=== PATIENT | female | born 1995 | race African-American/Black ===

== ENCOUNTER 2017-01-21 13:13 | Emergency (ER) | payer MEDICAID ==
[~2017-01-21] VITALS: Ht 152.4 cm; Wt 56.5 kg
[~2017-01-21 13:13] MED LIST: VALA500T32
[2017-01-21 13:23] VITALS: Ht 152.4 cm; Wt 56.5 kg
[2017-01-21] MEDS ORDERED: DICYCLOMINE 10 MG CAP PO ONE (14:30)
[2017-01-21 14:39] LABS: ADD SCAN DIFF NO
[2017-01-21 14:43] LABS: BASOPHILS % 0.6 % (0.0-2.0); EOSINOPHILS # 0.1 10^3/ul (0.0-0.5); EOSINOPHILS % 1.5 % (0.0-7.0); HEMATOCRIT 36.5 % (37.0-47.0); HEMOGLOBIN 11.7 g/dl (12.0-16.0); LYMPHOCYTES % 42.3 % (15.0-51.0); MEAN CORPUSCULAR HEMOGLOBIN 28.2 pg (29.0-33.0); MEAN CORPUSCULAR HGB CONC 32.1 g/dl (32.0-37.0); MEAN PLATELET VOLUME 10.3 fl (7.4-10.4); MONOCYTE # 0.4 10^3/ul (0.3-0.9); MONOCYTES % 7.9 % (0.0-11.0); NEUTROPHIL # 2.2 10^3/ul (1.6-7.5); NEUTROPHILS % 47.7 % (39.0-77.0); PLATELET COUNT 238 10^3/UL (140-415); RED BLOOD COUNT 4.15 10^6/ul (4.20-5.40); RED CELL DISTRIBUTION WIDTH 13.7 % (11.5-14.5); WHITE BLOOD COUNT 4.7 10^3/ul (4.8-10.8)
[2017-01-21 14:48] LABS: ADD UMIC YES; URINE BILIRUBIN (Dip) NEGATIVE (NEGATIVE); URINE BLOOD (Dip) TRACE (NEGATIVE); URINE COLOR LT. YELLOW (YELLOW); URINE GLUCOSE (Dip) NEGATIVE (NEGATIVE); URINE KETONES (Dip) NEGATIVE (NEGATIVE); URINE LEUKOCYTE ESTERASE (Dip) NEGATIVE (NEGATIVE); URINE NITRITE (Dip) NEGATIVE (NEGATIVE); URINE TOTAL PROTEIN (Dip) NEGATIVE (NEGATIVE); URINE UROBILINOGEN (Dip) 0.2 E.U./dL (0.1-1.0)
[2017-01-21 15:04] LABS: POTASSIUM 3.5 mmol/L (3.5-5.1)
[2017-01-21 15:06] LABS: CREATININE 0.68 mg/dl (0.44-1.00)
[2017-01-21 15:07] LABS: ALBUMIN/GLOBULIN RATIO 1.28; BILIRUBIN,INDIRECT 1.3 mg/dl (0-1.1); BILIRUBIN,TOTAL 1.3 mg/dl (0.2-1.3); CALCIUM 9.5 mg/dl (8.4-10.2); TOTAL PROTEIN 8.9 g/dl (6.1-8.1)
[2017-01-21 15:19] LABS: BACTERIA,URINE FEW; MUCUS,URINE FEW; SQUAMOUS EPITHELIAL CELL,UR MODERATE; URINE RBCS 0-2 /HPF (0)
--- NOTE | 2017-01-21 15:59 | ERD ---
ER Documentation Chief Complaint Date/Time DATE: 01/21/17 TIME: 15:56 Chief Complaint abd cramping, nausea and back pain since am s/p taking acyclovir again 2day (DK VALDERRAMA) HPI This is a 21-year-old female presents to the ER with generalized abdominal cramping that started 2 weeks ago. Abdominal cramping is located in the middle of the stomach and radiates to her back. Patient admits to nausea she denies vomiting she does have diarrhea. Diarrhea is watery and does not have any blood in it. Patient does not have any fevers or chills. She has had one episode of this in the past, and a few months and then went away. Patient states she started taking acyclovir 2 days ago and that today her nausea and abdominal pain was worse. Denies any rashes. She denies any shortness of breath or difficulty breathing. She denies any chest pain. (DK VALDERRAMA) ROS 12 point review of systems was done, all negative except per HPI. (DK VALDERRAMA) Medications Home Meds Active Scripts Ondansetron Hcl* (Zofran*) 4 Mg Tablet, 4 MG PO Q6H for NAUSEA AND/OR VOMITING, #30 TAB Prov:DK VALDERRAMA 01/21/17 Dicyclomine Hcl* (Bentyl*) 10 Mg Capsule, 10 MG PO QID for 5 Days, CAP Prov:DK VALDERRAMA 01/21/17 Reported Medications Valacyclovir Hcl* (Valtrex*) 500 Mg Tablet 07/13/12 Allergies Allergies: Coded Allergies: No Known Allergy (Unverified , 07/13/12) PMhx/Soc Hx Alcohol Use: No Hx Substance Use: No Hx Tobacco Use: No Smoking Status: Never smoker (DK VALDERRAMA) Physical Exam Vitals Vital Signs Date Time Temp Pulse Resp B/P Pulse Ox O2 Delivery O2 Flow Rate FiO2 01/21/17 13:23 98.3 87 18 119/74 100 (GAMA KING PA-C) Physical Exam GENERAL: The patient is well developed and appropriate for usual state of health , in no apparent distress. HEENT: Atraumatic CHEST: Clear to auscultation bilaterally. There are no rales, wheezes or rhonchi. HEART: Regular rate and rhythm. No murmurs, clicks, rubs or gallops. ABDOMEN: Soft, nontender and nondistended. Good bowel sounds. No rebound or guarding. No gross peritonitis. No gross organomegaly or masses. No Gonzalez sign or McBurney point tenderness. BACK: No midline or flank tenderness. EXTREMITIES: Equal pulses bilaterally. There is no peripheral clubbing, cyanosis or edema. No focal swelling or erythema. Full range of motion. Grossly neurovascularly intact NEURO: Alert and oriented. Cranial nerves II through XII are intact. Motor strength in all 4 extremities with 5/5 strength. Sensation grossly intact. Normal speech and gait. SKIN: There is no apparent rash or petechia. The skin is warm and dry. (DK VALDERRAMA) Result Diagram: 01/21/17 1425 01/21/17 1425 Results 24 hrs Laboratory Tests Test 01/21/17 14:25 White Blood Count 4.710^3/ul Red Blood Count 4.1510^6/ul Hemoglobin 11.7g/dl Hematocrit 36.5% Mean Corpuscular Volume 88.0fl Mean Corpuscular Hemoglobin 28.2pg Mean Corpuscular Hemoglobin Concent 32.1g/dl Red Cell Distribution Width 13.7% Platelet Count 74154^3/UL Mean Platelet Volume 10.3fl Neutrophils % 47.7% Lymphocytes % 42.3% Monocytes % 7.9% Eosinophils % 1.5% Basophils % 0.6% Nucleated Red Blood Cells % 0.0/100WBC Neutrophils # 2.210^3/ul Lymphocytes # 2.010^3/ul Monocytes # 0.410^3/ul Eosinophils # 0.110^3/ul Basophils # 0.010^3/ul Nucleated Red Blood Cells # 0.010^3/ul Urine Color LT. YELLOW Urine Clarity CLEAR Urine pH 6.0 Urine Specific [place] 1.025 Urine Ketones NEGATIVE Urine Nitrite NEGATIVE Urine Bilirubin NEGATIVE Urine Urobilinogen 0.2 E.U./dL Urine Leukocyte Esterase NEGATIVE Urine Microscopic RBC 0-2/HPF Urine Microscopic WBC NONE SEEN/HPF Urine Squamous Epithelial Cells MODERATE Urine Bacteria FEW Urine Mucus FEW Urine Hemoglobin TRACE Urine Glucose NEGATIVE% Urine Total Protein NEGATIVE Urine Test NEGATIVE Sodium Level 140mmol/L Potassium Level 3.5mmol/L Chloride Level 102mmol/L Carbon Dioxide Level 26mmol/L Anion Gap 16 Blood Urea Nitrogen 10mg/dl Creatinine 0.68mg/dl Glucose Level 87mg/dl Calcium Level 9.5mg/dl Total Bilirubin 1.3mg/dl Direct Bilirubin 0.00mg/dl Indirect Bilirubin 1.3mg/dl Aspartate Amino Transf (AST/SGOT) 19IU/L Alanine Aminotransferase (ALT/SGPT) 22IU/L Alkaline Phosphatase 53IU/L Total Protein 8.9g/dl Albumin 5.0g/dl Globulin 3.90g/dl Albumin/Globulin Ratio 1.28 Lipase 100U/L Current Medications Medications (Trade) Dose Ordered Sig/Erica Route PRN Reason Start Time Stop Time Status Last Admin Dose Admin Dicyclomine HCl (Bentyl) 20 mg ONCE ONCE PO 01/21/17 14:30 01/21/17 14:31 DC 01/21/17 14:37 (GAMA KING PA-C) Procedures/MDM Differential diagnosis includes but is not limited; appendicitis, diverticulitis , intra-abdominal abscess, obstruction, constipation, IBS, Crohn's disease, colitis. At this time I am awaiting CT results. If CT results are normally advised patient to follow-up with her primary care doctor and see gastroenterology systems possible for further testing such as endoscopy or colonoscopy. She will be sent home with Zofran with Bentyl. She can take Imodium [id number] as needed for diarrhea. (DK VALDERRAMA) PROCEDURE: CT abdomen and pelvis without contrast. CLINICAL INDICATION: Abdominal pain. Nausea. TECHNIQUE: CT of the abdomen and pelvis without contrast was performed on a multidetector high-resolution CT scanner. Coronal and sagittal reformatted images were obtained from the axial source images. Images were reviewed on a high- resolution PACS workstation. The total exam CTDI equals 6.1 mGy and the total exam DLP equals 311.17 mGy-cm. One or more of the following dose reduction techniques were used: - Automated exposure control. - Adjustment of the mA and/or kV according to patient size. - Use of iterative reconstruction technique. COMPARISON: None available. FINDINGS: Visualized lower thorax: The visualized lung bases are clear. The visualized heart is unremarkable. Hepatobiliary system and spleen: The liver is grossly unremarkable. There is no intra or extrahepatic biliary ductal dilatation. The gallbladder is grossly unremarkable. The spleen is grossly unremarkable. The pancreas is grossly unremarkable. Adrenal glands and genitourinary system: The adrenal glands are grossly unremarkable. There is no nephrolithiasis or hydronephrosis. The urinary bladder is grossly unremarkable. The uterus and adnexa are grossly unremarkable. Gastrointestinal system: The stomach and small bowel are unremarkable. There is no bowel wall thickening or evidence of obstruction. The appendix is in the right lower quadrant and is unremarkable. Peritoneum, vascular, and lymphatics: There is no free intraperitoneal air. There is a small amount of free fluid within the cul-de-sac, likely physiologic. There is no mesenteric or retroperitoneal adenopathy. The aorta is nonaneurysmal. Musculoskeletal system: There are no concerning osseous lesions. IMPRESSION: 1. No acute abnormality or findings to suggest a source of the patient's symptoms. 2. Small amount of free fluid within the cul-de-sac, likely physiologic. RPTAT: GG .Vargas Rivers MD, MD Date Time Electronically viewed and signed by .Vargas Rivers MD, MD on 01/21/2017 16:58 .P/ CC: DK VALDERRAMA CBC showed no evidence of systemic infection or severe anemia. Red blood cells and hemoglobin slightly decreased. CMP showed no evidence of electrolyte abnormalities, severe acidosis, alkalosis , renal failure, or liver disease. UA showed no evidence of acute infection or hematuria. Urine test was negative. History and physical consistent with abdominal pain of unknown etiology. At this time low suspicion for acute ovarian torsion, small bowel obstruction, tubo -ovarian abscess, acute appendicitis, pancreatitis, cholecystitis, pyelonephritis, urinary tract infection, or ectopic . I agreed with previous decision to follow-up with GI specialist if symptoms continue. Based on patient's history of present illness and physical examination the decision was made to discharge. The patient was re-evaluated after ED treatment and stabilizing measures, and symptoms have improved. There is no evidence of life threatening injuries or illnesses at this time. On re-examination, patient resting in no distress, stable vital signs, reports feeling better and safe for discharge with outpatient follow up with PMD in 1-2 days. Patient given return precautions. (GAMA KING PA-C) Departure Diagnosis: Primary Impression: Abdominal pain Condition: Stable DK VALDERRAMA January 21, 2017 15:59 GAMA KING PA-C January 21, 2017 17:24
[2017-01-21] MEDS ORDERED: DICY10CA60 PO (16:00)
[2017-01-21] MEDS ORDERED: ONDA4TAB8 PO (16:00)
--- NOTE | 2017-01-21 16:58 | RADRPT ---
PROCEDURE: CT abdomen and pelvis without contrast. CLINICAL INDICATION: Abdominal pain. Nausea. TECHNIQUE: CT of the abdomen and pelvis without contrast was performed on a multidetector high-resolution [facility]. Coronal and sagittal reformatted images were obtained from the axial source images. Images we re reviewed on a high-resolution PACS workstation. The total exam CTDI equals 6.1 mGy and the total exam DLP equals 311.17 mGy-cm. One or more of the following dose reduction techniques were used: - Automated exposure control. - Adjustment of the mA and/or kV according to patient size. - Use of iterative reconstruction technique. COMPARISON: None available. FINDINGS: Visualized lower thorax: The visualized lung bases are clear. The visualized heart is unremarkable. Hepatobiliary system and spleen: The liver is grossly unremarkable. There is no intra or extrahepatic biliary ductal dilatation. The gallbladder is grossly unremarkable. The spleen is grossly unremarkable. The pancreas is grossly unr emarkable. Adrenal glands and genitourinary system: The adrenal glands are grossly unremarkable. There is no nephrolithiasis or hydronephrosis. The urin yasmeen bladder is grossly unremarkable. The uterus and adnexa are grossly unremarkable. Gastrointestinal system: The stomach and small bowel are unremarkable. There is no bowel wall thickening or evidence of obstr uction. The appendix is in the right lower quadrant and is unremarkable. Peritoneum, vascular, and lymphatics: There is no free intraperitoneal air. There is a small amount of free fluid within the cul-de-sac, likely physiologic. There is no mesenteric or retroperitoneal adenopathy. The aorta is nonaneurysmal . Musculoskeletal system: There are no concerning osseous lesions. IMPRESSION: 1. No acute abnormality or findings to suggest a source of the patient's symptoms. 2. Small amount of free fluid within the cul-de-sac, likely physiologic. RPTAT: GG .Vargas Rivers MD, MD Date Time Electronically viewed and signed by .Vargas Rivers MD, MD on 01/21/2017 16:58 .P/
[2017-01-21 17:43] VITALS: BP 115/72; PULSE 77; RESP 18; TEMP 98.3
== END 2017-01-21 17:35 | disposition home or self-care (01) ==
LOC: FTE 13:13
DX: R10.84 Generalized abdominal pain (principal)
CPT/HCPCS: 74176; 80053; 81001; 83690; 84703; 85025; Z7610; 36415; 81003